=== PATIENT | female | born 1955 | race Caucasian/White ===

== ENCOUNTER 2023-08-10 14:09 | Emergency (ER) | payer OTHER, SELFPAY ==
--- NOTE | ~2023-08-10 | CT_ITS ---
EXAMINATION: CT brain wo con DATE: 08/10/2023 15:30 INDICATION: Head injury. TECHNIQUE: Computed tomography (CT) of the head was performed without intravenous contrast. The mA wa s adjusted according to patient size. Iterative reconstruction technique was employed. The dose-lengt h product was 605.33 mGy-cm. COMPARISON: None FINDINGS: There is no intracranial hemorrhage, acute infarction, or abnormal intracranial mass lesion . There are scattered areas of low attenuation in the cerebral white matter. The ventricles are anne marie l in size. There is mild mucosal thickening in the ethmoid sinuses. The mastoid air cells are normal. There is a left posterior superior scalp laceration. The orbits are normal. IMPRESSION: 1. Mild nonspecific cerebral white matter disease, which likely represents chronic small vessel ische alvina disease. Reviewed, dictated and finalized at location E. IMPRESSION: 1. 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
--- NOTE | ~2023-08-10 | CT_ITS ---
EXAMINATION: CT cervical spine wo con DATE: 08/10/2023 15:31 INDICATION: Head injury. TECHNIQUE: Computed tomography (CT) of the cervical spine was performed without intravenous contrast. Automated exposure control and iterative reconstruction technique were employed. The dose-length pro duct was 379.47 mGy-cm. COMPARISON: None FINDINGS: There is 3 degrees levocurvature of cervical spine. There is mild kyphosis of cervical spin e. Vertebral body heights are normal. There is severely decreased disc height at C4-C5 and moderately decreased disc height at C5-C6 and C6-C7. The following disc levels are specifically discussed: C2-C3: There is no uncovertebral joint osteoarthritis. There is severe bilateral facet joint osteoart hritis. There is mild bilateral neural foraminal stenosis. There is no central canal stenosis. C3-C4: There is no uncovertebral joint osteoarthritis. There is severe right and mild left facet join t osteoarthritis. There is mild bilateral neural foraminal stenosis. There is no central canal stenos is. C4-C5: There is severe bilateral uncovertebral joint osteoarthritis. There is moderate bilateral face t joint osteoarthritis. There is moderate right and mild left neural foraminal stenosis. There is mil d central canal stenosis. C5-C6: There is severe bilateral uncovertebral joint osteoarthritis. There is mild bilateral facet beulah int osteoarthritis. There is moderate right and mild left neural foraminal stenosis. There is mild ce ntral canal stenosis. C6-C7: There is severe bilateral uncovertebral joint osteoarthritis. There is severe right and modera te left facet joint osteoarthritis. There is mild bilateral neural foraminal stenosis. There is mild central canal stenosis. C7-T1: There is no uncovertebral joint osteoarthritis. There is severe bilateral facet joint osteoart hritis. There is mild bilateral neural foraminal stenosis. There is no central canal stenosis. IMPRESSION: 1. No fracture. 2. Severe cervical spondylosis. Reviewed, dictated and finalized at location E.
[2023-08-10 14:14] VITALS: BP 156/84; PULSE 73; RESP 18; TEMP 36.3; O2SAT 100
--- NOTE | 2023-08-10 14:21 | PC.NURSE ---
Pt c/o knot on back of her left leg and is concerned it could be a blood clot.
[2023-08-10 14:24] VITALS: BP 145/75; PULSE 79; RESP 18; TEMP 36.5; O2SAT 95
--- NOTE | 2023-08-10 16:38 | ED.FALL ---
HPI - Fall General Chief Complaint: Fall Stated Complaint: fall, head lac Time Seen by Provider: 08/10/23 16:26 History of Present Illness HPI Narrative: Patient got her foot caught on a rug and fell backwards hitting her head on a recliner, no loss of consciousness, no nausea vomiting, but there was a good amount of bleeding and she was worried and came in. tetanus utd Review of Systems Review of Systems: All systems reviewed & are unremarkable except as noted in HPI and below Exam Narrative: EXAMINATION OF ORGAN SYSTEMS/BODY AREAS: Constitutional: Vital signs per nursing GENERAL:[No acute distress, non-toxic appearing.] HEAD: 3 cm laceration to left posterior scalp EYES: EOMI, conjunctiva normal ENT: Hearing grossly intact LUNGS: Nonlabored breathing. HEART: [Regular rate and rhythm] ABD: no distension EXT: Normal range of motion SKIN: [No rashes or lesions.] NEURO: [Alert and oriented x 3. No gross focal sensory or strength deficits.] normal speech, ambulating normal gait PSYCH: Normal affect Course Vital Signs Vital signs: Vital Signs Temperature 97.4 F L 08/10/23 14:14 Pulse Rate 73 08/10/23 14:14 Respiratory Rate 18 08/10/23 14:14 Blood Pressure 156/84 H 08/10/23 14:14 Pulse Oximetry 100 08/10/23 14:14 Temperature 97.8 F 08/10/23 17:17 Pulse Rate 80 08/10/23 17:17 Respiratory Rate 16 08/10/23 17:17 Blood Pressure 140/80 08/10/23 17:17 Pulse Oximetry 100 08/10/23 17:17 Procedures Laceration Laceration 1: Date: 08/10/23 Site: scalp Side (If applicable): left Size (cm): 4 Description: linear, irregular and clean Depth: simple, single layer Local Anesthetic: lidocaine 1% Amount of anesthesia used (mL): 3 Pre-repair: wound explored, irrigated, minor debridement and deep structures intact ====== Skin Level ====== Skin layer closed with: simon (7 simon placed) ====== Subcutaneous Layer ====== ====== Muscle Layer ====== ====== Tendon Layer ====== MDM - Fall MDM Narrative Medical decision making narrative: Patient presenting after fall, she tripped and her slides and fell backwards hitting her head on possibly the recliner or end table, noticed a lot of blood so came to the hospital. She does have a large scalp laceration which is cleaned, numbed, stapled, patient tolerated this well. Good approximation afterwards. CT head/ C-spine obtained negative for acute abnormality. Stable for discharge at this time. Patient agreeable to outpatient management. Discharge Plan Discharge Clinical Impression: Laceration of scalp Patient Disposition: Home, Self-Care Condition: Stable Instructions: Antibiotic Form, Head Injury (ED), Staple Care (ED) Additional Instructions: You have 7 simon which will need to be removed in 7-10 days. You can always return for any further issues. Follow up with your doctor.; Follow-up/Referrals: PHYSICIAN NOT ON STAFF,NONSTAFF [Primary Care Provider] -
[2023-08-10 17:17] VITALS: BP 140/80; PULSE 80; RESP 16; TEMP 36.6; O2SAT 100
== END 2023-08-10 17:19 | disposition home or self-care (01) ==
LOC: ANHED 17:09
PROVIDERS: Emergency Provider Emergency Medicine
DX: S01.01XA Laceration without foreign body of scalp, initial encounter (principal); M47.812 Spondylosis without myelopathy or radiculopathy, cervical region; R90.82 White matter disease, unspecified; W18.09XA Striking against other object with subsequent fall, initial encounter
CPT/HCPCS: 12002; 70450; 72125; 99284